=== PATIENT | male | born 1945 | race Caucasian/White ===

== ENCOUNTER 2024-08-11 08:48 | Emergency (ER) | payer OTHER, SELFPAY ==
[2024-08-11 08:55] VITALS: BP 146/86
--- NOTE | 2024-08-11 09:41 | ED.GENMED ---
History of Present Illness
General
Chief Complaint: Breathing Problem
Source: patient
Exam Limitations: none
Time Seen by Provider: 08/11/24 09:38
Nursing documentation reviewed up to this point in time: agreed with
History of Present Illness
History of Present Illness:
Patient is a 79-year-old male who presents today for evaluation. Patient started out with a head cold 10 days ago but now complains of persistent cough. reports patient has been coughing almost nonstop; although last night was not as bad.
Patient denies any fever chills .he is drinking and eating. He does feel slightly short of breath with coughing episodes
Past History
Past History
ED Past Medical History: Arrthythmia (afib on Eliquis), CVA and Other (Pancreatitis)
ED Past Surgical History: Orthopedic and Tonsilectomy
Social History
Tobacco: Former smoker
Alcohol: None
Drug: None
Personal:
Living: with family
Employment: Retired
Family History
Family History: Other (Noncontributory)
Review of Systems
Review of Systems
Allergies reviewed?: Yes
Other source history: family
All Other Systems: ROS reviewed and negative except as documented in HPI and ROS
Constitutional: Reports no symptoms; Denies fever, fatigue or chills
Respiratory: Reports cough and trouble breathing
Cardiac: Reports no symptoms
ABD/GI: Reports no symptoms
: Reports no symptoms
Musculoskeletal: Reports no symptoms
Skin: Reports no symptoms
Neurological: Reports no symptoms
Psychiatric: Reports no symptoms
Phy Exam
General Physical Exam
General Presentation: no apparent distress
General age: appears stated age
General Skin: warm and dry
General Habitus: normal
General Mental: alert
General Hydration: appears well hydrated
Cardiovascular Exam
Cardiovascular Exam: regular rate/rhythm, no murmur and normal peripheral pulses
Pulmonary Exam
Pulmonary Exam: no respiratory distress and other (very mild exp wheezing at bases)
Neurological Exam
Neurological Exam: alert and oriented x3
Musculoskeletal Exam
Musculoskeletal Exam: full ROM
Skin Exam
Skin Exam: normal color and warm/dry
Psychiatric Exam
Psychiatric Exam: normal mood/affect
Scores
Heart Failure Risk
Heart Failure Risk Score: Not Applicable
Course
Orders/Labs/Results
Orders:
Orders
08/11/24 09:39
COVID-19 Antigen Urgent
Source: Nasal Swab
Influenza A+B Rapid Molecular Urgent
MAKEDA Source: Nasal Swab
Specimen Description:
08/11/24 09:57
Chest [CR Chest - 2 Views ] Urgent
Comment:
Reason For Exam: cough
08/11/24 11:03
Albuterol Nebs [Ventolin Nebules] 2.5 mg INH R NOW STA
08/11/24 11:04
Dexamethasone Pf [Decadron] 10 mg PO NOW STA
08/11/24 11:54
Albuterol Nebs [Ventolin Nebules] 2.5 mg INH R NOW STA
Vital Signs
Initial and Last Documented VS:
Initial Vital Signs
Temp Pulse Resp BP Pulse Ox
98.2 F 78 20 146/86 95
08/11/24 08:55 08/11/24 08:55 08/11/24 08:55 08/11/24 08:55 08/11/24 08:55
Last Documented Vital Signs
Temp Pulse Resp BP Pulse Ox
98.2 F 77 16 110/64 93
08/11/24 08:55 08/11/24 10:00 08/11/24 10:00 08/11/24 10:00 08/11/24 10:06
[employer] Floor [employer] App[employer] consulted with Physician
L[employer] Applier consulted with physician?: Yes
Name of Physician Consulted: DR Donald
MDM/Problems Addressed
Differential Diagnosis Includes:
Not limited to viral syndrome, bronchitis COVID-pneumonia flu
MDM/Problems Addressed:
Patient is a 79-year-old male who presents to the ER awake alert in no acute distress for evaluation of cough. Patient started with cold nasal congestion however presents with persistent cough. Patient had a better night last night although he
has had a lot of persistent cough worse at night typically over the past several days. Patient denies any fever chills he is eating and drinking. He presents awake alert no acute distress very minimal expiratory wheeze however not hypoxic
nontachypneic no shortness of breath. Pt was given 1 dose of oral Decadron here will DC with 4 more days of prednisone with low-dose of Tessalon. Patient is negative for COVID,-negative for flu and negative pneumonia on chest x-ray .likely
bronchitis viral patient nontoxic feels well after go home.
*Radiology
Radiology exam reviewed: radiology read reviewed
*Pulse Oximetry
Patient hypoxic: no
*Critical Care Note
Total Time (30-74mins, 75-104mins- exclusive of procedures): Not Applicable
ED Attending Note
-
Portions of this chart may have been created with voice recognition software.� Occasional wrong word or��sound alike� substitutions may have occurred due to the inherent limitations of voice recognition software.
Discharge Plan
Departure
Patient Disposition: Home (Routine Discharge)
Date of Disposition: 08/11/24
Time of Disposition: 12:25
Patient with high blood pressure during this ER visit?: Yes
Condition: Fair
Covid-19: Not Applicable
Discharge Problem:
Bronchitis, Acute sinusitis
Instructions: Acute Bronchitis, Adult (DC)
Prescriptions:
New
prednisone 20 mg tablet
40 mg PO DAILY Qty: 8 0RF
albuterol sulfate 90 mcg/actuation HFA aerosol inhaler
2 inh inhalation Q6H PRN (Reason: shortness of breath or wheezing) Qty: 6.7 0RF
benzonatate 200 mg capsule
200 mg PO TID PRN (Reason: Cough) Qty: 6 0RF
No Action
cholecalciferol (vitamin D3) 1,000 UNITS tablet
1,000 units PO DAILY
multivitamin with folic acid [Tab-A-Rosetta] 1 TABLET tablet
1 tab PO DAILY
docusate sodium 100 MG capsule
100 mg PO BID Qty: 60 0RF
atorvastatin 40 mg Tablet
40 mg PO QPM
sennosides 8.6 mg Tablet
8.6 mg PO DAILY PRN (Reason: Constipation)
polyethylene glycol 3350 17 gram Powder In Packet
17 g PO PRN PRN (Reason: Constipation)
acetaminophen 325 MG tablet
650 mg PO Q4HPRN PRN (Reason: pain) 0RF
tizanidine 2 MG tablet
2 mg PO Q6HPRN PRN (Reason: SPASM) Qty: 20 0RF
Eliquis 5 MG tablet
5 mg PO BID Qty: 60 0RF
metoprolol succinate 25 MG tablet extended release 24 hr
25 mg PO DAILY Qty: 30 0RF
Referrals:
Karla Vera MD [Family Provider] -
Activity Restrictions/Additional Instructions:
As discussed a prescription for inhaler was sent to her pharmacy use as directed: Hernia 2 puffs every 6 hours as needed. In addition a prescription for prednisone was sent to your pharmacy ;start tomorrow. 40 mg a day for the next 4 days. Also a
mild prescription for cough medicine was sent to pharmacy to take for the next 2 days.
Be sure to stay well-hydrated get plenty rest. Follow-up with a family doctor the next of days and return if any worsening of symptoms
Interventions
Interventions:
*Risk Screen - Suicide Last Done: 08/11/24 08:55
*General Assessment Last Done: 08/11/24 08:55
*Neglect/Abuse Screening Last Done: 08/11/24 10:06
ED- Fall Risk Assessment Last Done: 08/11/24 10:06
*ED COVID-19 Vaccine History Last Done: 08/11/24 08:55
ED- Cardiac Assessment Last Done: 08/11/24 10:06
ED- Pulmonary Assessment Last Done: 08/11/24 10:06
Discharge Date and Time
Print Language: BRUNEIAN
[2024-08-11 10:00] VITALS: BP 110/64
[2024-08-11 10:26] LABS: COVID-19 Antigen Negative (Negative)
[2024-08-11] MEDS: VENTOLIN NEBULES 2.5 MG INH ×2 (11:12→12:10)
[2024-08-11] MEDS: DECADRON 10 MG PO (11:12)
[2024-08-11 12:45] VITALS: BP 148/79
[2024-08-11 12:46] VITALS: BP 148/79
== END 2024-08-11 12:46 | disposition home or self-care (01) ==
LOC: EMR 08:48
PROVIDERS: EMERGENCY PHYSICIAN Emergency Medicine; FAMILY PHYSICIAN Family Medicine
DX: J40 Bronchitis, not specified as acute or chronic (principal); J01.90 Acute sinusitis, unspecified; Z87.891 Personal history of nicotine dependence; Z11.52 Encounter for screening for COVID-19
CPT/HCPCS: 99284; 94640; 71046; 87502; 87811

== ENCOUNTER → 2025-01-06 13:36 | Outpatient (REF) | payer OTHER, SELFPAY | LOC: RAD 13:36 | PROVIDERS: ATTENDING PHYSICIAN Internal Medicine Cardiovascular Disease; FAMILY PHYSICIAN Family Medicine | DX: G45.9 Transient cerebral ischemic attack, unspecified (principal) | CPT/HCPCS: 70450; 93880 ==

== ENCOUNTER → 2025-01-20 10:20 | Outpatient (REF) | payer OTHER, SELFPAY | LOC: RCS 10:20 | PROVIDERS: ATTENDING PHYSICIAN Internal Medicine Cardiovascular Disease; FAMILY PHYSICIAN Family Medicine | DX: G45.9 Transient cerebral ischemic attack, unspecified (principal) | CPT/HCPCS: 93306 ==